=== PATIENT | female | born 1995 | race African-American/Black ===

== ENCOUNTER 2021-03-30 20:12 | Emergency (ER) | payer OTHER ==
[~2021-03-30] VITALS: Ht 165.1 cm; Wt 83.9 kg
[2021-03-30 20:29] LABS: URINE BILIRUBIN NEGATIVE (Negative); URINE BLOOD NEGATIVE (Negative); URINE CLARITY CLEAR; URINE COLOR YELLOW; URINE GLUCOSE-RANDOM* NEGATIVE (Negative); URINE KETONES NEGATIVE (Negative); URINE LEUKOCYTES-REFLEX NEGATIVE (Negative); URINE NITRITE-REFLEX NEGATIVE (Negative); URINE PROTEIN (DIPSTICK) NEGATIVE (Negative); URINE UROBILINOGEN 0.2 E.U./dl (0.2-1.0)
[2021-03-30 20:42] LABS: ABSOLUTE NEUTROPHILS 4.6 thou/uL (1.4-8.2); BASOPHILS 0.6 % (0.0-2.0); EOSINOPHILS 3.5 % (0.0-3.0); HEMATOCRIT 28.3 % (37.0-47.0); HEMOGLOBIN 9.2 gm/dL (12.0-15.0); LYMPHOCYTES 25.7 % (24.0-44.0); MCH 26.6 pg (26.0-34.0); MCHC 32.4 g/dL (28.0-37.0); MCV 82.1 fL (80.0-100.0); MONOCYTES 7.9 % (1.0-8.0); PLATELET COUNT 319 thou/uL (150-400); POLYS 62.3 % (36.0-66.0); RBC 3.45 mil/uL (4.20-5.00); RDW 16.6 % (10.5-14.5); WBC 7.5 thou/uL (4.0-11.0)
[2021-03-30 20:50] LABS: CREATININE 0.9 mg/dL (0.6-1.0); POTASSIUM 3.7 mmol/L (3.5-5.1)
[2021-03-30 20:57] LABS: ALBUMIN 3.8 g/dL (3.4-5.0); TOTAL BILIRUBIN 0.2 mg/dL (0.2-1.0); TOTAL PROTEIN 7.9 g/dL (6.4-8.2)
[2021-03-30] MEDS ORDERED: MOBIC7.5 MG PO (22:52)
[2021-03-30] MEDS ORDERED: IRON325 PO (22:52)
[2021-03-30] MEDS ORDERED: ZOFRAN ODT4 MG PO (22:52)
[2021-03-30 23:11] VITALS: BP 114/62
== END 2021-03-30 23:12 | disposition home or self-care (01) ==
LOC: ER 20:12
PROVIDERS: Physician Assistant
DX: N93.8 Other specified abnormal uterine and vaginal bleeding (principal); D25.9 Leiomyoma of uterus, unspecified; R10.84 Generalized abdominal pain; N93.9 Abnormal uterine and vaginal bleeding, unspecified; R11.0 Nausea; Z87.42 Personal history of other diseases of the female genital tract